=== PATIENT | male | born 1990 | race Caucasian/White ===

== ENCOUNTER → 2021-11-09 08:39 | Outpatient (CLI) | payer BC, SELFPAY ==
[2021-11-09 10:25] LABS: Add Manual Diff / Slide Review NO; Basophils Absolute Auto 0 /uL (0-100); Basophils Percent Auto 0.7 % (0-2); Eosinophils Absolute Auto 100 /uL (0-450); Eosinophils Percent Auto 1.6 % (2-4); Hematocrit 44.1 % (41-53); Hemoglobin 14.8 g/dL (13.5-17.5); Lymphocytes Absolute Auto 1400 /uL (1100-4500); Lymphocytes Percent Auto 35.5 % (25-40); Mean Corpuscular HGB Conc 33.5 % (30-36); Mean Corpuscular Hemoglobin 29.3 PG (26-34); Mean Corpuscular Volume 87.4 fL (80-100); Monocytes Absolute Auto 400 /uL (0-900); Monocytes Percent Auto 10.7 % (3-14); Neutrophils Absolute Auto 2100 /uL (1500-7000); Neutrophils Percent Auto 51.5 % (50-75); Platelet Count 219 X10^3/uL (150-400); Red Blood Cell Count 5.05 X10^6/uL (4.5-5.9); Red Cell Distribution Width 12.6 % (11.6-14.8); White Blood Cell Count 4.1 X10^3/uL (4.5-11.0)
[2021-11-09 10:41] LABS: Hemoglobin A1C% w Est Avg Glu 5.3 % (4.0-6.0)
[2021-11-09 11:04] LABS: Creatinine Urine Random 178.5 mg/dL
[2021-11-09 11:08] LABS: Microalbumi Creatinin Ratio Ur 3.9 ug/mg CR (<30); Microalbumin Urine Random 0.7 mg/dL (0-1.6)
[2021-11-09 11:17] LABS: Alanine Aminotransferase 69 IU/L (<50); Albumin 4.5 g/dL (3.5-5.0); Albumin Globulin Ratio 1.5 (1.0-2.8); Alkaline Phosphatase 64 U/L (38-126); Aspartate Aminotransferase 46 IU/L (17-59); BUN Creatinine Ratio 16.7 (6-22); Bilirubin Total 0.5 mg/dL (0.2-1.3); Blood Urea Nitrogen 16 mg/dL (9-20); Calcium 8.7 mg/dL (8.4-10.2); Carbon Dioxide 28 mmol/L (22-32); Chloride 101 mmol/L (98-107); Cholesterol 209 mg/dL (140-199); Estimated Glomerular Filt Rate > 60 mL/min (>60); Globulin 3.1 g/dL (1.7-4.1); Glucose 92 mg/dL (70-100); HDL Cholesterol 39 mg/dL (40-60); HEMOLYSIS < 15 (0-50); LDL Cholesterol Calculated 136 mg/dL (<100); Potassium 4.2 mmol/L (3.4-5.1); Sodium 139 mmol/L (137-145); Total Protein 7.6 g/dL (6.3-8.2); Triglycerides 168 mg/dL (35-150)
[2021-11-09 11:39] LABS: TSH w/ Reflex to FT4 2.57 uIU/mL (0.47-4.68)
== END ==
PROVIDERS: PCP Family Medicine; Referring Provider Family Medicine; Visit Provider Family Medicine
DX: E66.9 Obesity, unspecified (principal); R03.0 Elevated blood-pressure reading, without diagnosis of hypertension; R06.83 Snoring
CPT/HCPCS: 36415; 80053; 80061; 82043; 82570; 83036; 84443; 85025

== ENCOUNTER → 2023-01-19 09:20 | Outpatient (CLI) | payer BC, SELFPAY ==
[2023-01-19 09:54] LABS: Add Manual Diff / Slide Review NO; Basophils Absolute Auto 0 /uL (0-100); Basophils Percent Auto 0.8 % (0-2); Eosinophils Absolute Auto 100 /uL (0-450); Eosinophils Percent Auto 1.7 % (2-4); Hematocrit 43.5 % (41-53); Hemoglobin 14.7 g/dL (13.5-17.5); Lymphocytes Absolute Auto 1500 /uL (1100-4500); Lymphocytes Percent Auto 33.4 % (25-40); Mean Corpuscular HGB Conc 33.9 % (30-36); Mean Corpuscular Hemoglobin 29.9 PG (26-34); Mean Corpuscular Volume 88.2 fL (80-100); Monocytes Absolute Auto 500 /uL (0-900); Neutrophils Absolute Auto 2500 /uL (1500-7000); Neutrophils Percent Auto 54.1 % (50-75); Platelet Count 239 X10^3/uL (150-400); Red Blood Cell Count 4.94 X10^6/uL (4.5-5.9); Red Cell Distribution Width 12.4 % (11.6-14.8); White Blood Cell Count 4.6 X10^3/uL (4.5-11.0)
[2023-01-19 10:14] LABS: Alanine Aminotransferase 48 IU/L (<50); Albumin 4.9 g/dL (3.5-5.0); Albumin Globulin Ratio 1.8 (1.0-2.8); Alkaline Phosphatase 64 U/L (38-126); Aspartate Aminotransferase 38 IU/L (17-59); BUN Creatinine Ratio 19.4 (6-22); Bilirubin Total 0.8 mg/dL (0.2-1.3); Blood Urea Nitrogen 18 mg/dL (9-20); Calcium 9.3 mg/dL (8.4-10.2); Carbon Dioxide 28 mmol/L (22-32); Chloride 101 mmol/L (98-107); Cholesterol 191 mg/dL (140-199); Estimated Glomerular Filt Rate > 60 mL/min (>60); Globulin 2.8 g/dL (1.7-4.1); Glucose 89 mg/dL (70-100); HDL Cholesterol 42 mg/dL (40-60); HEMOLYSIS < 15 (0-50); LDL Cholesterol Calculated 133 mg/dL (<100); Potassium 4.3 mmol/L (3.4-5.1); Sodium 139 mmol/L (137-145); Total Protein 7.7 g/dL (6.3-8.2); Triglycerides 82 mg/dL (35-150)
[2023-01-19 10:27] LABS: Microalbumin Urine Random < 0.6 mg/dL (0-1.6)
[2023-01-19 10:42] LABS: TSH w/ Reflex to FT4 2.54 uIU/mL (0.47-4.68)
[2023-01-20 08:52] LABS: Apolipoprotein B 101 mg/dL (<90)
[2023-01-23 12:29] LABS: Lipoprotein (a) 25.2 nmol/L (<75.0)
== END ==
PROVIDERS: PCP Family Medicine; Referring Provider Family Medicine; Visit Provider Family Medicine
DX: E78.5 Hyperlipidemia, unspecified (principal); E66.9 Obesity, unspecified; R74.8 Abnormal levels of other serum enzymes
CPT/HCPCS: 36415; 80053; 80061; 82043; 82172; 82570; 83695; 84443; 85025

== ENCOUNTER 2023-07-10 06:29 | Day surgery (SDC) | payer BC, SELFPAY ==
[2023-07-04 12:25] VITALS: BMI 31.5
[2023-07-10] VITALS (15 sets, daily range): BP systolic 75–146; BP diastolic 36–95; PULSE 52–79; RESP 12–16; TEMP 36.1–36.4; O2SAT 92–100; BMI 31.4
[2023-07-10] MEDS: LACTATED RINGERS 1,000 ML 42 ML IV ×2 (07:00→09:20)
[2023-07-10] MEDS: ACETAMINOPHEN 325 MG TABLET 975 MG PO (07:02)
--- NOTE | 2023-07-10 07:17 | SUR.OPER ---
Supine on padded OR bed, head on pillow, arms secured on padded arm boards at <90 degrees abduction, legs uncrossed, safety belt at thigh, tape over blanket over lower legs.
--- NOTE | 2023-07-10 07:30 | P.HP_ITS ---
History of Present Illness History of Present Illness Date Patient Seen: 07/10/23 Time Patient Seen: 07:30 Chief complaint: SDC Narrative: Anuj is a 33-year-old man who has an umbilical hernia. See office note from May for details. [facility] Medical History (Updated 07/04/23 @ 12:27 by Glenys Dunham RN) History of COVID-19 (2021) Elevated liver enzymes Hyperlipidemia Chicken pox Wears glasses Patent foramen ovale Skin cancer Surgical History Anesthesia History of neck surgery History of tonsillectomy and adenoidectomy Family History Grandfather Cancer Grandmother Alzheimer's disease Grandfather History of heart disease Social History household members: spouse Smoking Status: Never smoker alcohol intake: current Meds Home Medications and Allergies Home Medications Medication Instructions Recorded Confirmed Type Linda 1 tab PO PRN PRN Allergy Symptoms 07/09/23 07/10/23 History loratadine 10 mg tablet (Claritin) 10 mg PO DAILY PRN Allergy Symptoms 07/09/23 07/10/23 History Allergies Allergy/AdvReac Type Severity Reaction Status Date / Time cat dander Allergy Intermediate Verified 07/10/23 06:57 house dust mite Allergy Unknown Verified 07/10/23 06:57 pollen extracts Allergy Unknown ITCHING Verified 07/10/23 06:57 Exam Vital Signs (past 8 hours): - 07/10/23 06:57 Temperature 97.1 F L Pulse Rate 79 Respiratory Rate 16 Blood Pressure 146/95 H Pulse Oximetry 97 Oxygen Delivery Method Room Air Oxygen Delivery Method Room Air Const General: No acute distress Resp Effort & Inspection: normal respiratory effort Assessment & Plan Assessment and plan (1) Umbilical hernia: Qualifiers: Obstruction and gangrene presence: without obstruction or gangrene Qualified Code(s): K42.9 - Umbilical hernia without obstruction or gangrene Status: Acute Plan We reviewed the risks and benefits of open umbilical hernia repair with mesh and he would like to proceed.
[2023-07-10] MEDS: CEFAZOLIN 2 GM/100 ML PREMIX 100 ML IV (07:58)
[2023-07-10] MEDS: BUPIVACAINE 0.5% (PF) 30 ML, EPINEPHrine 0.15 MG INJ (08:01)
--- NOTE | 2023-07-10 08:31 | PM.OP.1 ---
Operative Date/Time/Diagnoses Date of procedure: 07/10/23 Time of procedure: 08:31 Pre-op diagnosis: Umbilical hernia Post-op diagnosis: same Procedure & Clinicians Procedure: Open umbilical hernia repair with mesh Same procedure as scheduled: Yes Surgeon: Jamil Cross Student Records Coordinator: Miguel Santos Anesthesia Type: General Operative Notes Procedure in detail: Ancef was administered. The patient was brought to the operating room, placed on the table in the supine position and general endotracheal anesthesia was induced. The abdomen was prepped and draped in the usual fashion. A time-out was performed. A 5 cm curvilinear incision was made inferior to the umbilicus. The hernia sac was dissected free from the surrounding subcutaneous adipose tissue. The sac was opened and visceral fatty contents were reduced into the abdomen. The fascial defect was roughly 2 cm. The edge of the fascial ring was cleared of all visceral and subcutaneous tissue. The fascia was then closed transversely with multiple interrupted 0 Ethibond sutures. The subcutaneous adipose tissue was cleared off of the anterior sheath circumferentially about 2 cm in each direction. A piece of polypropylene mesh was trimmed to fit over the fascial closure and secured with Tisseel. Once the Tisseel was dried the umbilical skin was tacked down to the deep tissue with a single 3-0 Vicryl stitch. The skin was closed with multiple interrupted 3-0 Vicryl dermal sutures followed by a running 4 Monocryl subcuticular closure. Steri-Strips were applied and an abdominal binder was applied. EBL: 10 mL Miguel SINGER provided assistance with exposure, retraction and closure of incisions. Post-operative Condition: stable Disposition: PACU
[2023-07-10] MEDS: ONDANSETRON 4 MG/2 ML INJ IV (08:50)
[2023-07-10] MEDS: METOCLOPRAMIDE 10 MG/2 ML INJ IV (08:59)
== END 2023-07-10 10:15 | disposition home or self-care (01) ==
PROVIDERS: PCP Family Medicine; Referring Provider Surgery; Visit Provider Surgery
PROC: (CPT 49591; principal; 2023-07-10 07:45)
DX: K42.9 Umbilical hernia without obstruction or gangrene (principal)
CPT/HCPCS: 49591; J0171; J0330; J0690; J1100; J1885; J2405; J2704; J2765; J3010

== ENCOUNTER → 2023-11-01 08:31 | Outpatient (CLI) | payer BC, SELFPAY ==
--- NOTE | 2023-11-01 08:32 | DI.RAD.S_ITS ---
PROCEDURE: XR HAND LT MIN 3V INDICATIONS: Left hand, base of thumb pain TECHNIQUE: 3 views of the hand(s) acquired. COMPARISON: None. FINDINGS: Ring overlying the 4th proximal phalanx limits evaluation. Bones: No fractures or dislocations. Carpal bones are normally aligned. No suspicious bony lesions. Joint spaces are maintained. Soft tissues: No suspicious soft tissue calcifications. IMPRESSION: No acute bony abnormality. If clinical symptoms persist, consider repeat radiograph in 10-14 days versus cross-sectional imaging. Dictated by: Ximena Shelton M.D. on 11/01/2023 at 15:13 Approved by: Ximena Shelton M.D. on 11/01/2023 at 15:14
== END ==
PROVIDERS: PCP Family Medicine; Referring Provider Nurse Practitioner Family; Visit Provider Nurse Practitioner Family
DX: S69.92XA Unspecified injury of left wrist, hand and finger(s), initial encounter (principal); X58.XXXA Exposure to other specified factors, initial encounter
CPT/HCPCS: 73130

== ENCOUNTER 2024-10-18 13:22 | Emergency (ER) | payer BC, SELFPAY ==
[2024-10-18 13:28] VITALS: BP 131/86; PULSE 52; RESP 16; TEMP 36.7; O2SAT 99; BMI 29.9
--- NOTE | 2024-10-18 14:17 | ED.BACK ---
HPI - Back Pain/Injury General Chief Complaint: Back Pain/Injury Stated Complaint: back spasms Time Seen by Provider: 10/18/24 13:27 History of Present Illness HPI Narrative: 34-year-old gentleman with no significant past medical history was playing pickleball this morning when he thinks he pulled some muscle in his back having difficult time ambulating sitting standing and lying down with no bowel or bladder incontinence despite taking Tylenol and ibuprofen. Never had this before, nothing makes it better or worse. Other than what is stated 14 point review of system is negative. Related Data Home Medications ?Medication ?Instructions ?Recorded ?Confirmed Linda 1 tab PO PRN PRN Allergy Symptoms 07/09/23 11/01/23 loratadine 10 mg tablet (Claritin) 10 mg PO DAILY PRN Allergy Symptoms 07/09/23 11/01/23 Previous Rx's ?Medication ?Instructions ?Recorded cyclobenzaprine 10 mg tablet 10 mg PO TID PRN muscle spasm #30 10/18/24 tabs hydrocodone 5 mg-acetaminophen 325 1 tab PO Q4-6H PRN pain #20 tabs 10/18/24 mg tablet prednisone 20 mg tablet 20 mg PO BID #10 tabs 10/18/24 Allergies Allergy/AdvReac Type Severity Reaction Status Date / Time cat dander Allergy Intermediate Verified 11/01/23 08:24 house dust mite Allergy Unknown Verified 11/01/23 08:24 pollen extracts Allergy Unknown ITCHING Verified 11/01/23 08:24 Review of Systems Review of Systems ROS Unobtainable: All systems reviewed & are unremarkable except as noted in HPI and below Patient History Medical History History of COVID-19 (2021) Elevated liver enzymes Hyperlipidemia Chicken pox Wears glasses Patent foramen ovale Skin cancer Surgical History Anesthesia History of neck surgery History of tonsillectomy and adenoidectomy Family History Grandfather Cancer Grandmother Alzheimer's disease Grandfather History of heart disease Social History household members: spouse alcohol intake: current Exam Narrative Exam Narrative: GENERAL: [34] year old patient appears stated age. Well-developed patient, in mild distress. HEAD: Atraumatic. Normocephalic. EYES: Pupils equal round and reactive. Extraocular motions intact. No scleral icterus. No injection or drainage. EXTREMITIES: No edema or joint tenderness. BACK: TTP b/l paralumbosacral L4-5 S1 without deformity or crepitance. No flank tenderness. NEURO: AOx3. SKIN: No rash or erythema of visible areas Initial Vital Signs Initial Vital Signs: Vital Signs Temperature 98.1 F 10/18/24 13:28 Pulse Rate 52 L 10/18/24 13:28 Respiratory Rate 16 10/18/24 13:28 Blood Pressure 131/86 10/18/24 13:28 Pulse Oximetry 99 10/18/24 13:28 Oxygen Delivery Method Room Air 10/18/24 13:28 [place] [facility] [place] Name [place] Procedure: Bilateral trigger point injection Location: Bilateral paralumbar sacral L4-L5 region Time out performed: Yes Technique/Description of procedure performed: Patient draped and prepped in a sterile fashion. Using 20-1-1/2 gauge needle with 9 mL of 2% lidocaine without epi and 1 mL of Kenalog 40 mg was injected at b/l L4-L5 S1 without any complication Patient tolerated procedure: Well Complications: none Course Vital Signs Vital signs: Vital Signs - 8 hr 10/18/24 13:28 Temperature 98.1 F Pulse Rate 52 L Respiratory Rate 16 Blood Pressure 131/86 Pulse Oximetry 99 Oxygen Delivery Method Room Air MDM - Back Pain/Injury Imaging Data Extremity x-ray #1: Radiologist's Impression: [address] [address] XRay Report Signed Patient: Anuj Santiago MR#: [id number] : 1990 Acct:[id number] Age/Sex: 34 / M Date of Service: 10/18/24 Loc: ED Accession Number: [id number] Procedure: XR lumbar spine min 4V Ordering Provider: Brad Pool D.O. PROCEDURE: XR LUMBAR SPINE MIN 4V INDICATIONS: back pain TECHNIQUE: 5 views of the lumbar spine were acquired, including bilateral oblique views. COMPARISON: None. FINDINGS: Bones: 5 nonrib-bearing vertebrae are present. Transitional anatomy with sacralization of L5 is shown. There is normal bony alignment. No vertebral body compression fractures. No suspicious bony lesions. Soft tissues: Overlying bowel gas pattern is normal. No suspicious soft tissue calcifications. Oblique images: No pars defects. IMPRESSION: Transitional vertebral anatomy which can be a pain generator. Otherwise normal exam. Dictated by: Dee Weber M.D. on 10/18/2024 at 13:50 Approved by: Dee Weber M.D. on 10/18/2024 at 13:51 MDM Narrative Medical decision making narrative: Vital signs, nurse triage note, medication list, previous ER visits, and all imaging studies reviewed. Patient given [place] here and trigger point injection. DC home on [place] prednisone and Flexeril and to follow up PCP in 1 2 weeks if no improvement in symptoms. Differential diagnosis back sprain, spondylolisthesis, spondylolisthesis, spondylosis, herniated disc. Discharge Plan Departure Patient Disposition: Home Clinical Impression: Low back pain Qualifiers: Chronicity: acute Back pain laterality: bilateral Sciatica presence: without sciatica Qualified Code(s): M54.50 - Low back pain, unspecified Instructions: DI for Low Back Pain Activity Restrictions/Additional Instructions: Return with new or worsening symptoms. Take your medicines directed. Follow up PCP 1-2 weeks if no improvement in symptoms. Prescriptions: New hydrocodone-acetaminophen 5-325 mg tablet 1 tab PO Q4-6H PRN (Reason: pain) Qty: 20 0RF cyclobenzaprine 10 mg tablet 10 mg PO TID PRN (Reason: muscle spasm) Qty: 30 0RF prednisone 20 mg tablet 20 mg PO BID Qty: 10 0RF No Action Linda 1 tab PO PRN PRN (Reason: Allergy Symptoms) loratadine [Claritin] 10 mg Tablet 10 mg PO DAILY PRN (Reason: Allergy Symptoms) Referrals: Madhav Shea MD [Primary Care Provider, Family Practice] Stand Alone Forms: Patient Portal/API
--- NOTE | 2024-10-18 14:22 | DI.RAD.S_ITS ---
PROCEDURE: XR LUMBAR SPINE MIN 4V INDICATIONS: back pain TECHNIQUE: 5 views of the lumbar spine were acquired, including bilateral oblique views. COMPARISON: None. FINDINGS: Bones: 5 nonrib-bearing vertebrae are present. Transitional anatomy with sacralization of L5 is shown. There is normal bony alignment. No vertebral body compression fractures. No suspicious bony lesions. Soft tissues: Overlying bowel gas pattern is normal. No suspicious soft tissue calcifications. Oblique images: No pars defects. IMPRESSION: Transitional vertebral anatomy which can be a pain generator. Otherwise normal exam. Dictated by: Dee Weber M.D. on 10/18/2024 at 13:50 Approved by: Dee Weber M.D. on 10/18/2024 at 13:51
[2024-10-18] MEDS: LIDOCAINE 2% INJ MDV 20ML 20 ML INJ (14:30)
[2024-10-18] MEDS: TRIAMCINOLONE 40 MG/ML VIAL INJ (14:31)
[2024-10-18 15:48] VITALS: BP 131/94; PULSE 76; RESP 18; O2SAT 99
== END 2024-10-18 15:50 | disposition home or self-care (01) ==
PROVIDERS: Emergency Provider Family Medicine; PCP Family Medicine
DX: M54.50 Low back pain, unspecified (principal)
CPT/HCPCS: 20553; 72110; 99283; 99284